=== PATIENT | male | born 2000 | race African-American/Black ===

== ENCOUNTER 2024-05-05 11:47 | Emergency (ER) | payer OTHER, SELFPAY ==
--- NOTE | 2024-05-05 11:51 | ED.GENMED ---
History of Present Illness
General
Chief Complaint: Psychiatric Problem
Source: ambulance crew
Exam Limitations: clinical condition
Time Seen by Provider: 05/05/24 11:50
History of Present Illness
History of Present Illness:
See MDM
Past History
Past History
ED Past Medical History: Psychiatric
ED Past Surgical History: None
Social History
Tobacco: Other (unknown)
Alcohol: Other (unknown)
Phy Exam
Physical Exam
Physical Exam:
See MDM
Course
Orders/Labs/Results
Orders:
Orders
05/05/24 11:50
CT Head W/o Iv Contrast Urgent
Comment:
Reason For Exam: altered
Lorazepam [Ativan] 2 mg IV NOW STA
05/05/24 11:52
Straight cath- Treatment ONCE
05/05/24 12:13
Alcohol Urgent
Complete Blood Count/With Diff Urgent
Comprehensive Metabolic Panel Urgent
05/05/24 12:14
Fentanyl, Urine Urgent
Urine Drug Abuse Screen Urgent
Date Specimen was Collected: 05/05/24
Time Specimen was Collected: 12:13
Abnormal Lab Results
05/05/24 05/05/24
12:13 12:14
WBC 13.4 H 10^3/uL
(4.8-10.8)
Abs Immat Gran (auto) 0.1 H 10^3/uL
(0-0.05)
Absolute Neuts (auto) 11.6 H 10^3/uL
(1.4-6.5)
Absolute Lymphs (auto) 0.9 L 10^3/uL
(1.2-3.4)
Absolute Monos (auto) 0.8 H 10^3/uL
(0.1-0.6)
Neutrophils % 86.7 H %
(42.2-75.2)
Lymphocytes % 6.7 L %
(20.5-51.1)
Urine Fentanyl Screen Positive H
(Negative)
Ur Amphetamines Screen Positive H
(Negative)
U Methamphetamines Scrn Positive H
(Negative)
Urine Cocaine Screen Positive H
(Negative)
U Marijuana (THC) Screen Positive H
(Negative)
05/05/24 12:13
05/05/24 12:13
Vital Signs
Initial and Last Documented VS:
Initial Vital Signs
Pulse Resp BP Pulse Ox
109 24 143/117 98
05/05/24 12:00 05/05/24 12:00 05/05/24 12:00 05/05/24 12:00
Last Documented Vital Signs
Temp Pulse Resp BP Pulse Ox
98.6 F 134 24 143/117 99
05/05/24 12:22 05/05/24 13:28 05/05/24 13:28 05/05/24 12:22 05/05/24 12:22
MDM/Problems Addressed
Differential Diagnosis Includes:
HPI and MDM Narrative:
23-year-old male presenting from [facility] with concern for agitation and possibly agitated delirium. EMS called prior to arrival for and for droperidol and Versed. He received both. EMS stating that the facility had
given Haldol for his agitation where he was biting, screaming and kicking. He is new to [facility] as of last night. There is not much known about his past medical history. Before receiving the droperidol and Versed, EMS
stating that the patient had indicated that he had mental health issues and was on medications neither of which he knew. When he arrived, patient had a shield over his face so we could not bite or spit. He was placed in restraints. Patient has
irrational mumbling and appears delirious. At his current state, patient is extremely poor historian. He is intermittently stating 'I have mental health' and 'I want talk to my friends'
Will obtain a UDS. Will continue with benzodiazepines. Will obtain basic blood work to rule out metabolic encephalopathy and will obtain CT head
Physical exam
General: Irritated, mumbling, in restraints
HEENT: protecting airway
Neck: supple
CV: No evidence of cyanosis. Tachycardic
Resp: No accessory muscle use. Lungs clear
Abd: Non-distended
Extremities: No deformities
Neuro: alert. Moving all 4 extremities
Psych: Agitated
Skin: Intact
Problems Addressed including Acute and Chronic Conditions affecting care:
1. Delirium
Acuity: acute
Prognosis: stable
Details: Unsure if this is drug or alcohol withdrawal. Will obtain blood work to rule out metabolic encephalopathy.
2. [ ]
Acuity: acute
Prognosis: stable
Details:
3. [ ]
Acuity: acute
Prognosis: stable
Details:
4. [ ]
Acuity: acute
Prognosis: stable
Details:
5. [ ]
Acuity:
Prognosis:
Details:
Updates
Blood work without clinical significance. He has mild leukocytosis without fever. Throughout his stay, patient becoming more calm and cooperative. CT head negative. UDS positive for fentanyl, methamphetamine and cocaine and marijuana. Patient
likely exhibited drug-related delirium. Patient will be discharged back to senior care
Differential Diagnosis (but not limited to): Metabolic encephalopathy, delirium, drug withdrawal
Testing considered: Blood cultures but he is afebrile
Drug therapy (if applicable): OTC meds, please see d/c instruction regarding Rx drugs
Amount and/or Complexity of Data Reviewed
Clinical info obtained from: EMS and corrections staff
External data reviewed: N/A
Labs I independently reviewed (but not limited to): Mild leukocytosis, UDS positive
Radiology: The CT scan was personally and independently reviewed. In addition, official CT report reviewed.
Pulse Ox: not hypoxic
EKG independently reviewed: N/A
Data Clerk: N/A
Critical Care: N/A
Risk of Complication:
Social Determinants of health: Poor social support but will be monitored in person
Discussed with other providers: N/A
Escalation of Care includes Admit/Obs: After being observed in the Emergency Department, pt stable for discharge back to senior care
Occasional wrong word or 'sound a like' substitutions may have occurred due to the inherent limitations of voice recognition software. Read the chart carefully and recognize, using context, where substitutions have occurred.
*Critical Care Note
Total Time (30-74mins, 75-104mins- exclusive of procedures): Not Applicable
ED Attending Note
-
Portions of this chart may have been created with voice recognition software.� Occasional wrong word or��sound alike� substitutions may have occurred due to the inherent limitations of voice recognition software.
Discharge Plan
Departure
Patient Disposition: Halfway
Date of Disposition: 05/05/24
Time of Disposition: 13:39
Patient with high blood pressure during this ER visit?: Yes
Discharge Problem:
Drug-induced delirium
Instructions: BLOOD PRESSURE
Referrals:
[facility] [Family Provider] -
Activity Restrictions/Additional Instructions:
Real Tucker is medically cleared and stable for transfer back to senior care. His delirium is likely drug-induced. Please continue to monitor him.
Interventions
Interventions:
*Risk Screen - Suicide Last Done: 05/05/24 12:25
*General Assessment Last Done: 05/05/24 12:25
*Neglect/Abuse Screening Last Done: 05/05/24 12:25
*ED COVID-19 Vaccine History Last Done: 05/05/24 12:25
ED-Psychological Assessment Last Done: 05/05/24 12:30
Discharge Date and Time
Print Language: MALAY
[2024-05-05] MEDS: ATIVAN 2 MG IV (11:57)
[2024-05-05 12:00] VITALS: BP 143/117
[2024-05-05 12:22] VITALS: BP 143/117
[2024-05-05 12:30] LABS: % Basophils 0.1 % (0-2); % Immature Granulocytes 0.4 % (0-0.5); % Lymphocytes 6.7 % (20.5-51.1); % Monocytes 6.1 % (1.7-9.3); % Neutrophils 86.7 % (42.2-75.2); Absolute Immature Granulocytes 0.1 10^3/uL (0-0.05); Absolute Lymphocytes 0.9 10^3/uL (1.2-3.4); Absolute Monocytes 0.8 10^3/uL (0.1-0.6); Absolute Neutrophils 11.6 10^3/uL (1.4-6.5); Hematocrit 41.6 % (39.0-52.0); Hemoglobin 14.2 g/dL (13.0-18.0); Mean Corp Hgb Conc. 34.1 g/dL (33.0-37.0); Mean Corpuscular Hgb 27.4 pg (27.0-31.0); Mean Corpuscular Volume 80.3 fL (80.0-94.0); Mean Platelet Volume 9.9 fL (7.4-10.4); Nucleated Red Blood Cells % 0 % (-); Platelet Count 274 10^3/uL (130-400); Red Blood Cell Count 5.18 10^6/uL (4.70-6.10); Red Cell Dist. Width 12.9 % (11.5-14.5); White Blood Cell Count 13.4 10^3/uL (4.8-10.8)
[2024-05-05 12:47] LABS: ALT (SGPT) 26 U/L (0-50); AST (SGOT) 42 U/L (17-59); Alkaline Phosphatase 78 U/L (38-126); Blood Urea Nitrogen 15 mg/dl (9-20); Calcium 10.2 mg/dl (8.4-10.2); Carbon Dioxide 23 mmol/L (22-30); Chloride 102 mmol/L (98-107); Glucose 94 mg/dl (70-99); Potassium 4.3 mmol/L (3.5-5.1); Sodium 142 mmol/L (135-145); Total Protein 7.6 g/dl (6.3-8.2); eGFR > 60.00
[2024-05-05 12:55] LABS: Alcohol None Detected
[2024-05-05 12:56] LABS: Amphetamines Positive (Negative); Barbiturates Negative (Negative); Benzodiazepines Negative (Negative); Buprenorphine Negative (Negative); Cocaine Positive (Negative)
[2024-05-05 12:57] LABS: Marijuana Positive (Negative); Methadone Negative (Negative); Methamphetamines Positive (Negative); Opiates Negative (Negative); Phencyclidine Negative (Negative); Tricyclic Antidepressants Negative (Negative)
[2024-05-05 13:10] LABS: Fentanyl, Urine Positive (Negative)
[2024-05-05 14:07] VITALS: BP 143/117
== END 2024-05-05 14:09 ==
LOC: EMR 11:47
PROVIDERS: EMERGENCY PHYSICIAN Student in an Organized Health Care Education/Training Program
DX: R41.0 Disorientation, unspecified (principal); Z65.3 Problems related to other legal circumstances
CPT/HCPCS: 99284; 70450; 80053; 80306; 80307; 82077; 85025